=== PATIENT | female | born 1960 | race Caucasian/White ===

== ENCOUNTER 2023-01-27 07:22 | Day surgery (SDC) | payer BC ==
[2023-01-26 09:33] VITALS: BMI 22.6
[2023-01-27 07:42] VITALS: RESP 18; TEMP 97.4
[2023-01-27] MEDS ORDERED: LIDOCAINE HCL/PF 2% SDV 5ML VIAL ONE (07:57)
[2023-01-27] MEDS ORDERED: PROPOFOL 120 ML ONE (07:58)
[2023-01-27] MEDS ORDERED: GLYCOPYRROLATE 0.2 MG/1 ML VIAL ONE (09:02)
[2023-01-27 09:24] VITALS: BP 105/53; PULSE 64
== END 2023-01-27 09:42 | disposition home or self-care (01) ==
LOC: FASU-ENDO 07:22
PROVIDERS: ATTEND Internal Medicine Gastroenterology
PROC: 0DBH8ZX Excision of Cecum, Via Natural or Artificial Opening Endoscopic, Diagnostic (ICD-10-PCS; principal; 2023-01-27 08:32)
DX: Z12.11 Encounter for screening for malignant neoplasm of colon (principal); D12.0 Benign neoplasm of cecum; K64.1 Second degree hemorrhoids; K64.8 Other hemorrhoids
CPT/HCPCS: 88305-TC